=== PATIENT | male | born 1960 ===

== ENCOUNTER 2018-04-04 11:51 | Emergency (ER) | payer MEDICARE ==
[2018-04-04 11:57] VITALS: BP 118/74; PULSE 72; TEMP 98.6; O2SAT 98
[2018-04-04] MEDS ORDERED: Tobramycin/Dexamethasone OPHT OINT OD STA (12:11)
[2018-04-04] MEDS ORDERED: Amoxicillin-Clav 875-125 mg Tab PO STA (12:12)
--- NOTE | 2018-04-04 12:14 | C.PDOC ---
History Of Present Illness 57 year old male patient presents to the ER with c/o swelling and pain in the right lower eyelid for 2 days. Patient reports He went to the pharmacy, bought over the counter eye drops, and was suggested to go to the ER. Patient denies fever, trauma, discharge and change in vision. Time Seen by Provider: 04/04/18 12:06 Chief Complaint (Nursing): Eye Problem History Per: Patient History/Exam Limitations: no limitations Onset/Duration Of Symptoms: Days (x2) Current Symptoms Are (Timing): Still Present Associated Symptoms: Pain, Swelling. denies: Decreased Vision, Discharge From Eye Past Medical History Reviewed: Historical Data, Nursing Documentation, Vital Signs Vital Signs: Last Vital Signs Temp 98.6 F 04/04/18 11:54 Pulse 72 04/04/18 11:54 Resp 16 04/04/18 11:54 BP 118/74 04/04/18 11:54 Pulse Ox 98 04/04/18 12:15 Family History: States: No Known Family Hx - Social History Hx Alcohol Use: Yes Hx Substance Use: No - Immunization History Hx Tetanus Toxoid Vaccination: No Hx Influenza Vaccination: No Hx Pneumococcal Vaccination: No Review Of Systems Except As Marked, All Systems Reviewed And Found Negative. Constitutional: Negative for: Fever Eyes: Positive for: Pain, Other (swelling of right lower eyelid; no discharge or trauma). Negative for: Vision Change Physical Exam - Physical Exam Appears: Well, Non-toxic, No Acute Distress Skin: Warm, Dry Head: Atraumatic, Normacephalic Eye(s): bilateral: Normal Inspection, PERRL, EOMI, right: Other (inner stye of right lower eyelid; some surrounding swelling; mild tenderness to the periorbital area; no erythema) Neck: Normal ROM, Supple Neurological/Psych: Oriented x3, Normal Speech, Normal Motor, Normal Sensation, Normal Reflexes Gait: Steady ED Course And Treatment O2 Sat by Pulse Oximetry: 98 (RA) Pulse Ox Interpretation: Normal Medical Decision Making Medical Decision Making: Impression: right lower eyelid pain and swelling Plans: -- Amoxicillin -- Tobradex Reassess: Patient is resting comfortably. Tolerating PO. Patient was prescribed eye drops and referred to an safety deposit clerk for further evaluation. Disposition - Disposition Referrals: Arun Mishra [Staff Provider] - Disposition: HOME/ ROUTINE Disposition Time: 12:13 Condition: STABLE Additional Instructions: Follow up with Postulant within 2-3 days. Return to ED if feel worse. Prescriptions: Amoxicillin/Clavulanate [Augmentin 875 MG-125 MG] 1 tab PO BID #14 tab Tobramycin/Dexamethasone [Tobradex Eye Ointment] 1 appl OD BID #3.5 oint...g. Instructions: Miesha (Lopezdeolum) Forms: [employer] (Danish) Print Language: PERSIAN - Clinical Impression Clinical Impression: Miesha - PA / ASSISTANT SALES CENTER MANAGER / Resident Statement MD/ has reviewed & agrees with the documentation as recorded. - Scribe Statement The provider has reviewed the documentation as recorded by the Madelin Ruggiero Do All medical record entries made by the Scribe were at my direction and personally dictated by me. I have reviewed the chart and agree that the record accurately reflects my personal performance of the history, physical exam, medical decision making, and the department course for this patient. I have also personally directed, reviewed, and agree with the discharge instructions and disposition.
[2018-04-04] MEDS ORDERED: Tobramycin 0.3% OPH OINT ONE (12:18)
[2018-04-04] MEDS ORDERED: Amoxicillin-Clav 875-125 mg Tab PO ONE (12:19)
[2018-04-04 12:32] VITALS: RESP 18
== END 2018-04-04 12:31 | disposition home or self-care (01) ==
LOC: C.ER 11:51
DX: H00.022 Hordeolum internum right lower eyelid (principal)

== ENCOUNTER 2019-01-12 08:05 | Emergency (ER) | payer MEDICAID, MEDICARE ==
[2019-01-12 08:13] VITALS: RESP 20; O2SAT 98
[2019-01-12] MEDS ORDERED: Dexamethasone 4 mg/1 ml IM STA (08:58)
--- NOTE | 2019-01-12 09:05 | C.PDOC ---
History Of Present Illness 58 year old male presents to ED with complaint of sore throat and fever for the past 3 days. Patient also complains of associated body aches. He states that he has been taking over the counter Tylenol and Motrin with mild relief. Patient states that today the pain became worse, prompting ED visit. Patient has a recent history of travel and notes (+) sick contact in airplane. He denies rash, vomiting, diarrhea, and cough. Time Seen by Provider: 01/12/19 08:21 Chief Complaint (Nursing): ENT Problem History Per: Patient History/Exam Limitations: no limitations Onset/Duration Of Symptoms: Days (3) Current Symptoms Are (Timing): Still Present Location Of Pain: Throat, Diffuse Myalgias Associated Symptoms: Fever, Sore Throat, Myalgias. denies: Chills, Cough, Sputum, Sinus Drainage, Nasal Congestion, Nausea, Diarrhea Ear Symptoms: Bilateral: None Recent travel outside of the [place]: Yes Past Medical History Reviewed: Historical Data, Nursing Documentation, Vital Signs Vital Signs: Last Vital Signs Temp 100.1 F H 01/12/19 08:08 Pulse 98 H 01/12/19 08:08 Resp 20 01/12/19 08:08 BP 126/66 01/12/19 08:08 Pulse Ox 98 01/12/19 08:08 Primary Care Provider: Non [facility] Provider, - Medical History PMH: No Chronic Diseases Surgical History: No Surg Hx Family History: States: Unknown Family Hx - Social History Hx Alcohol Use: No Hx Substance Use: No - Immunization History Hx Tetanus Toxoid Vaccination: No Hx Influenza Vaccination: No Hx Pneumococcal Vaccination: No Review Of Systems Constitutional: Positive for: Fever, Malaise. Negative for: Chills, Weakness ENT: Positive for: Throat Pain. Negative for: Ear Pain, Nose Discharge, Nose Congestion Respiratory: Negative for: Cough, Sputum Gastrointestinal: Negative for: Vomiting, Diarrhea Skin: Negative for: Rash Physical Exam - Physical Exam Appears: Well, Non-toxic, No Acute Distress Skin: Normal Color, Warm, Dry, No Rash Head: Atraumatic, Normacephalic Eye(s): bilateral: Normal Inspection, PERRL, EOMI Ear(s): Bilateral: Normal Nose: Normal, No Discharge Oral Mucosa: Moist Throat: Erythema, Exudate, Other (+ anterior cervical lymphadenopathy) Neck: Normal ROM, Supple Chest: Symmetrical, No Deformity Cardiovascular: Rhythm Regular, No Murmur Respiratory: No Accessory Muscle Use, No Rales, No Rhonchi, No Wheezing Gastrointestinal/Abdominal: Soft, No Tenderness Back: Normal Inspection, No CVA Tenderness Extremity: Capillary Refill (<2 seconds), No Swelling Neurological/Psych: Oriented x3, Normal Speech, Normal Cognition Gait: Steady ED Course And Treatment O2 Sat by Pulse Oximetry: 98 (in RA) Pulse Ox Interpretation: Normal Medical Decision Making Medical Decision Making: Initial Plan: Toradol IM Decadron IM Disposition - Disposition Referrals: [facility] [Outside] Disposition: HOME/ ROUTINE Disposition Time: 10:24 Condition: GOOD Additional Instructions: Follow up with the medical doctor within 1-2 days. Return if worsened. Prescriptions: Amoxicillin [Amoxil 500 mg Cap] 500 mg PO TID #29 cap Ibuprofen [Motrin] 1 tab PO TID PRN #30 tab PRN Reason: Pain Instructions: Sore Throat, Adult (DC) Forms: [employer] (Algerian) - Clinical Impression Clinical Impression: Pharyngitis - PA / DECALER / Resident Statement MD/DO has reviewed & agrees with the documentation as recorded. (Roseann Mc) - Scribe Statement The provider has reviewed the documentation as recorded by the Scribe (Roseann Mc) All medical record entries made by the Scribe were at my direction and personally dictated by me. I have reviewed the chart and agree that the record accurately reflects my personal performance of the history, physical exam, medical decision making, and the department course for this patient. I have also personally directed, reviewed, and agree with the discharge instructions and disposition.
[2019-01-12] MEDS ORDERED: Penicillin G Benzathine 1.2 Mill Unit/2 ml Syr IM ONE (10:22)
[2019-01-12 10:25] VITALS: BP 102/53; PULSE 75; TEMP 98.5
== END 2019-01-12 11:04 | disposition home or self-care (01) ==
LOC: C.ER 08:05
DX: J02.9 Acute pharyngitis, unspecified (principal)
CPT/HCPCS: 96372; 99283; J1100; J1885

== ENCOUNTER 2019-01-28 08:57 | Emergency (ER) | payer MEDICAID ==
[2019-01-28 09:02] VITALS: BP 115/77; PULSE 85; RESP 18; TEMP 97.6; O2SAT 97
--- NOTE | 2019-01-28 09:16 | C.PDOC ---
History Of Present Illness Patient is a 58 year old male who presents to the ED for evaluation of right knee pain after he tripped and fell one day ago. He denies any LOC, neck pain, back pain, nausea, vomiting, abdominal pain, weakness, numbness, tingling, or other injuries. Time Seen by Provider: 01/28/19 09:05 Chief Complaint (Nursing): Lower Extremity Problem/Injury History Per: Patient History/Exam Limitations: no limitations Onset/Duration Of Symptoms: Days (1) Current Symptoms Are (Timing): Still Present Recent travel outside of the [place]: No Additional History Per: Patient Past Medical History Reviewed: Historical Data, Nursing Documentation, Vital Signs Vital Signs: Last Vital Signs Temp 97.6 F 01/28/19 09:00 Pulse 85 01/28/19 09:00 Resp 18 01/28/19 09:00 BP 115/77 01/28/19 09:00 Pulse Ox 97 01/28/19 09:00 Primary Care Provider: Non [facility] Provider, - Medical History PMH: No Chronic Diseases Surgical History: No Surg Hx Family History: States: Unknown Family Hx - Social History Hx Alcohol Use: Yes Hx Substance Use: No - Immunization History Hx Tetanus Toxoid Vaccination: No Hx Influenza Vaccination: No Hx Pneumococcal Vaccination: No Review Of Systems Cardiovascular: Negative for: Chest Pain Respiratory: Negative for: Shortness of Breath Gastrointestinal: Negative for: Nausea, Vomiting, Abdominal Pain Musculoskeletal: Positive for: Leg Pain (right knee pain ). Negative for: Neck Pain, Back Pain Physical Exam - Physical Exam Appears: Well, Non-toxic, No Acute Distress Skin: Warm, Dry Head: Atraumatic, Normacephalic Eye(s): bilateral: Normal Inspection Chest: Symmetrical, No Deformity Cardiovascular: Rhythm Regular, No Murmur Respiratory: Normal Breath Sounds, No Rales, No Rhonchi, No Wheezing Extremity: Tenderness (medial right knee tender to touch ), Capillary Refill <2 Sec, No Deformity (right knee ), No Swelling (right knee), Other (skin intact to right knee ) Pulses: Left Dorsalis Pedis: Normal, Right Dorsalis Pedis: Normal Neurological/Psych: Oriented x3 ED Course And Treatment O2 Sat by Pulse Oximetry: 97 (on RA) Pulse Ox Interpretation: Normal - Other Rad Xray Rt Knee X-Ray: Viewed By Me, Read By Radiologist Interpretation: Date of service: 01/28/2019. PROCEDURE: Right Knee Radiographs. HISTORY: Injury. COMPARISON: None. TECHNIQUE: 3 views obtained. FINDINGS: BONES: Bone alignment and mineralization are normal. There is no acute displaced fracture or bone destruction. JOINTS: There is mild tricompartmental degenerative osteoarthrosis with reduced joint spaces, marginal osteophytes and tibial spiking, worse in the medial compartment. JOINT EFFUSION: There is a small suprapatellar joint effusion. OTHER FINDINGS: None. IMPRESSION: No acute displaced fracture or dislocation. Mild tricompartmental degenerative osteoarthrosis, worse in the medial compartment. Small suprapatellar joint effusion. Medical Decision Making Medical Decision Making: Plan: Xray Rt Knee Patient was walking to the ED hallway from triage to [facility]. Patient was complaining that he was unable to bend his leg, but was observed to be walking and bending his leg. Patient was able to bend his leg and sit in wheelchair on way to Xray. Xray was interpreted by me and found to be negative and later by radiology. Patient was informed of negative Xray and offered Edis wrap, Tylenol, Motrin, but denied them. Patient walked out of [facility] without his discharge papers. refused EDIS wrap refused Tylenol, Motrin Disposition Counseled Patient/Family Regarding: Studies Performed, Diagnosis, Need For Followup - Disposition Referrals: [facility] [Outside] [facility] [Outside] Disposition: HOME/ ROUTINE Disposition Time: 09:52 Additional Instructions: DEMETRICE QUILES, thank you for letting us take care of you today. Your provider was Brianna Crum MD and you were treated for FALL/RT KNEE PAIN. The emergency medical care you received today was directed at your acute symptoms. It may take several days for your symptoms to resolve. Return to the Emergency Department if your symptoms worsen, do not improve, or if you have any other problems. Please contact your doctor or call one of the physicians/clinics you have been referred to that are listed on the Patient Visit Information form that is included in your discharge packet. Bring any paperwork you were given at discharge with you along with any medications you are taking to your follow up visit. Our treatment cannot replace ongoing medical care by a primary care provider outside of the emergency department. Thank you for allowing the [facility] team to be part of your care today. If you had an X-Ray or CT scan: A Radiologist will review the ED reading if any change in treatment is needed we will contact you. Instructions: How to Make a Hot/Cold Rice Pack, Knee Pain (DC), How to Use an Elastic Bandage Forms: Gen Discharge Inst Gabonese, [employer] (Gabonese) Print Language: KYRGYZ - Clinical Impression Clinical Impression: Knee injury - Scribe Statement The provider has reviewed the documentation as recorded by the Patrickibfavian Lepe All medical record entries made by the Patrickibfavian were at my direction and personally dictated by me. I have reviewed the chart and agree that the record accurately reflects my personal performance of the history, physical exam, medical decision making, and the department course for this patient. I have also personally directed, reviewed, and agree with the discharge instructions and disposition.
--- NOTE | 2019-01-28 13:28 | RAD ---
Date of service: 01/28/2019 PROCEDURE: Right Knee Radiographs. HISTORY: Injury COMPARISON: None. TECHNIQUE: 3 views obtained. FINDINGS: BONES: Bone alignment and mineralization are normal. There is no acute displaced fracture or bone destruction. JOINTS: There is mild tricompartmental degenerative osteoarthrosis with reduced joint spaces, marginal osteophytes and tibial spiking, worse in the medial compartment. JOINT EFFUSION: There is a small suprapatellar joint effusion. OTHER FINDINGS: None. IMPRESSION: No acute displaced fracture or dislocation. Mild tricompartmental degenerative osteoarthrosis, worse in the medial compartment. Small suprapatellar joint effusion.
== END 2019-01-28 09:58 | disposition home or self-care (01) ==
LOC: C.ER 08:57
DX: S89.91XA Unspecified injury of right lower leg, initial encounter (principal); W01.0XXA Fall on same level from slipping, tripping and stumbling without subsequent striking against object, initial encounter